=== PATIENT | female | born 1975 | race Caucasian/White ===

== ENCOUNTER → 2017-05-12 | Outpatient (CLI) | payer BC ==
--- NOTE | 2017-05-12 18:30 | CT ---
EXAMINATION TYPE: CT knee LT wo con DATE OF EXAM: 05/12/2017 COMPARISON: NONE HISTORY: Patient complains of left knee pain post fall. CT DLP: 424 mGycm Automated exposure control for dose reduction was used. FINDINGS: There is a nondisplaced transverse fracture of the patella. There is comminution with a smaller fragm ent on the inferior lateral aspect. There is knee joint effusion. The tibia and fibula appear intact. The distal femur is intact. There is no dislocation. I see no focal bone destruction. IMPRESSION: COMMINUTED NONDISPLACED PATELLA FRACTURE. KNEE JOINT EFFUSION.
== END | disposition home or self-care (01) ==
LOC: RADCTMAIN 17:17
PROVIDERS: ATTEND Orthopaedic Surgery
DX: S82.045A Nondisplaced comminuted fracture of left patella, initial encounter for closed fracture (principal); M25.462 Effusion, left knee